=== PATIENT | male | born 1970 | race Caucasian/White ===

== ENCOUNTER 2019-08-02 12:42 | Outpatient (REF) | payer OTHER, SELFPAY ==
[2019-08-02 20:34] LABS: Hemoglobin A1C 11.2 % (3.8-5.6)
[2019-08-02 21:15] LABS: ALT 72 U/L (16-63); AST 47 U/L (15-37); Albumin 3.9 g/dL (3.4-5.0); Alkaline Phosphatase 136 U/L (46-116); Anion Gap 11.7 mmol/L (3-11); Bilirubin, Total 1.7 mg/dL (0.2-1.0); CO2 29.3 mmol/L (21.0-32.0); CREATININE 0.84 mg/dL (0.70-1.30); Calcium 9.3 mg/dL (8.5-10.1); Calculated LDL 61 mg/dL (<100); Chloride 96 mmol/L (98-107); Cholesterol 174 mg/dL (<200); Glucose 430 mg/dL (74-106); HDL Cholesterol 39 mg/dL (40-60); Potassium 4.4 mmol/L (3.5-5.1); Sodium 137 mmol/L (136-145); Total Protein 7.4 g/dL (6.4-8.2); Triglyceride 374 mg/dL (<150)
[2019-08-02 21:47] LABS: BUN 15 mg/dL (7-18)
== END 2019-08-02 13:02 ==
LOC: NCHCN 12:42
PROVIDERS: PCP Internal Medicine; Visit Provider Internal Medicine
DX: M25.511 Pain in right shoulder (principal); I10 Essential (primary) hypertension; R35.8 Other polyuria; E66.9 Obesity, unspecified
CPT/HCPCS: 80053; 80061; 83036

== ENCOUNTER 2019-10-22 11:20 | Outpatient (REF) | payer OTHER, SELFPAY ==
[2019-10-22 21:54] LABS: Hemoglobin A1C 7.2 % (3.8-5.6)
[2019-10-22 22:03] LABS: ALT 49 U/L (16-63); AST 42 U/L (15-37); Albumin 3.9 g/dL (3.4-5.0); Alkaline Phosphatase 110 U/L (46-116); BUN 16 mg/dL (7-18); CREATININE 0.92 mg/dL (0.70-1.30); Calcium 9.2 mg/dL (8.5-10.1); Chloride 98 mmol/L (98-107); Glucose 220 mg/dL (74-106); Potassium 4.3 mmol/L (3.5-5.1); Sodium 135 mmol/L (136-145); TSH 0.95 uIU/mL (0.36-3.74); Total Protein 7.8 g/dL (6.4-8.2)
== END 2019-10-22 11:40 ==
LOC: NCHCN 11:20
PROVIDERS: PCP Internal Medicine; Visit Provider Nurse Practitioner Family
DX: E11.9 Type 2 diabetes mellitus without complications (principal); I10 Essential (primary) hypertension
CPT/HCPCS: 80053; 83036; 84443

== ENCOUNTER 2021-02-17 18:53 | Outpatient (REF) | payer OTHER, SELFPAY ==
[2021-02-17 22:24] LABS: COMMENT (LAB VIEW ONLY) 60.32 mg/dL; Microalb ug/mg Crea 54.9 ug/mg Cr
== END 2021-02-17 18:54 | disposition home or self-care (01) ==
LOC: NCHCN 18:53
PROVIDERS: PCP Internal Medicine; Visit Provider Nurse Practitioner Family
DX: E11.9 Type 2 diabetes mellitus without complications (principal)
CPT/HCPCS: 82043; 82570

== ENCOUNTER 2021-10-20 18:57 | Outpatient (REF) | payer OTHER, SELFPAY ==
[2021-10-20 21:38] LABS: Anion Gap 8.2 mmol/L (3-11); BUN 24 mg/dL (7-18); CO2 26.8 mmol/L (21.0-32.0); CREATININE 0.7 mg/dL (0.70-1.30); Calcium 9.4 mg/dL (8.5-10.1); Chloride 102 mmol/L (98-107); Potassium 3.8 mmol/L (3.5-5.1); Sodium 137 mmol/L (136-145)
[2021-10-20 21:44] LABS: Glucose 141 mg/dL (74-106)
== END 2021-10-20 18:58 | disposition home or self-care (01) ==
LOC: NCHCN 18:57
PROVIDERS: PCP Internal Medicine; Visit Provider Nurse Practitioner Family
DX: I10 Essential (primary) hypertension (principal); E66.9 Obesity, unspecified
CPT/HCPCS: 80048

== ENCOUNTER 2022-01-05 18:51 | Outpatient (REF) | payer OTHER, SELFPAY ==
[2022-01-05 23:17] LABS: COMMENT (LAB VIEW ONLY) 108.81 mg/dL; Microalb ug/mg Crea 80.4 ug/mg Cr
== END 2022-01-05 18:52 | disposition home or self-care (01) ==
LOC: NCHCN 18:51
PROVIDERS: PCP Internal Medicine; Visit Provider Nurse Practitioner Family
DX: E11.9 Type 2 diabetes mellitus without complications (principal)
CPT/HCPCS: 82043; 82570

== ENCOUNTER 2022-10-19 21:07 | Outpatient (REF) | payer OTHER, SELFPAY ==
--- OUTSIDE RECORDS SUMMARY | 2022-10-19 21:09 | XMS_ITS | CCD ---
Author Name Unknown Address [address] [place] [address] [phone] Organization Unknown Address [address] [place] [address] [phone] Care Team Providers Care Director Of Investigations Name Role Phone MATIAS WALTON Attending Physician [phone] MATIAS WALTON Rounding (Secondary) Physic ivory [phone] Vital Signs Unknown or Not Available. Allergies Allergy Code Allergy Type Reaction Status TRULICITY [id number] Drug allergy PANCREAS SWELLING Activ e Procedures Unknown or Not Available. History of Immunizations Unknown or Not Available. Problems Unknown or Not Available. Results Unknown or Not Available. Active Medications Unknown or Not Available. Medications Administered During Visit Unknown or Not Available. Encounters Encounter Diagnosis Diagnosis Code Start Date Carpal tunnel syndrome, left upper limb G5602 10/06/2021 Social History Smoking Status Code Start Date End Date Never smoker [id number] Patient Decision Aids Unknown or Not Available. Discharge Instructions You were admitted to [facility] on 10/06/2021 15:12 with a principal diagnosis of Carpal tunnel syndrome, left upper limb You were discharged from [facility] on 10/06/2021 00:00 Should you have any questions prior to discharge, please contact a member of your healthcare team. If you have left the hospital and have any questions, please contact your primary care physician. Chief Complaint and Reason For Visit Unknown or Not Available. Function Status Unknown or Not Available. Plan of Care Unknown or Not Available. Referral/Transition of Care Unknown or Not Available.
--- OUTSIDE RECORDS SUMMARY | 2022-10-19 21:10 | XMS_ITS | CCD ---
Author Name Unknown Address [address] [place] [address] [phone] Organization Unknown Address [address] [place] [address] [phone] Care Team Providers Care Home Health Attendant Name Role Phone MATIAS WALTON Attending Physician [phone] Vital Signs Unknown or Not Available. Allergies Allergy Code Allergy Type Reaction Status TRULICITY [id number] Drug allergy PANCREAS SWELLING Activ e Procedures Procedure Code Procedure Type Date Neuroplasty &/Or Transpositi on; Median Nerve At Carpal Tunnel 11262 CPT 10/26/2021 History of Immunizations Unknown or Not Available. Problems Unknown or Not Available. Results GLUCOSE FINGER/HEEL CAPILLAR Y - Collect Date/Time: 10/26/2021 06:39 Test Name Code Test Result Test Units Test Ref Rang e GLUCOSE CAP 203 mg/dL L=70 H=116 Active Medications Medications Administered During Visit Medication Dose Units Frequency Route Date/Time of Last Dose CEPHALEXIN CAPSULE: 500MG 1000 MG X1 PO 10/26/2021 06:46 ACETAMINOPHEN TABLET: 325MG 975 MG X1 PO 10/26/2021 06:45 CELECOXIB CAPSULE: 100MG 200 MG X1 PO 10/26/2021 06:47 Encounters Encounter Diagnosis Diagnosis Code Start Date Carpal tunnel syndrome, left upper limb G5602 10/26/2021 Social History Smoking Status Code Start Date End Date Never smoker [id number] Patient Decision Aids Unknown or Not Available. Discharge Instructions You were admitted to [facility] on 10/26/2021 06:18 with a principal diagnosis of Carpal tunnel syndrome, left upper limb You had the following procedures done:Neuroplasty &/Or Transposition; Median Nerve At Carpal Tunnel You had the following tests done:GLUCOSE FINGER/HEEL CAPILLARY You were discharged from [facility] on 10/26/2021 08:12 Should you have any questions prior to [...]
--- OUTSIDE RECORDS SUMMARY | 2022-10-19 21:10 | XMS_ITS | CCD ---
Author Name Unknown Address [address] [place] [address] [phone] Organization Unknown Address [address] [place] [address] [phone] Care Team Providers Care Party Host Name Role Phone YAJAIRA ROGERS Attending Physician [phone] YAJAIRA ROGERS Rounding (Secondary) Physician [phone] Vital Signs Unknown or Not Available. Allergies Allergy Code Allergy Type Reaction Status TRULICITY 2596623 Drug allergy PANCREAS SWELLING Activ e Procedures Unknown or Not Available. History of Immunizations Unknown or Not Available. Problems Unknown or Not Available. Results Unknown or Not Available. Active Medications Unknown or Not Available. Medications Administered During Visit Unknown or Not Available. Encounters Encounter Diagnosis Diagnosis Code Start Date Carpal tunnel syndrome, left upper limb G5602 09/28/2021 Social History Smoking Status Code Start Date End Date Never smoker [id number] Patient Decision Aids Unknown or Not Available. Discharge Instructions You were admitted to on 09/28/2021 10:16 with a principal diagnosis of Carpal tunnel syndrome, left upper limb You were discharged from on 09/28/2021 00:00 Should you have any questions prior [...]
--- OUTSIDE RECORDS SUMMARY | 2022-10-19 21:10 | XMS_ITS | CCD ---
Author Name Unknown Address [address] [place] [address] [phone] Organization Unknown Address [address] [place] [address] [phone] Care Team Providers Care Flatwork Supervisor Name Role Phone ABBEY EDWARDS Attending Physician [phone] ABBEY EDWARDS Rounding (Secondary) Physician [phone] Vital Signs Unknown or Not Available. Allergies Allergy Code Allergy Type Reaction Status TRULICITY 4697234 Drug allergy PANCREAS SWELLING Activ e Procedures Unknown or Not Available. History of Immunizations Unknown or Not Available. Problems Unknown or Not Available. Results Unknown or Not Available. Active Medications Unknown or Not Available. Medications Administered During Visit Unknown or Not Available. Encounters Encounter Diagnosis Diagnosis Code Start Date Procedure on nervous system [id number] 10/24 Social History Smoking Status Code Start Date End Date Never smoker [id number] Patient Decision Aids Unknown or Not Available. Discharge Instructions You were admitted to [facility] on 11/04/2021 08:28 with a principal diagnosis of Encounter for surgical aftercare following surgery on the nervous system You were discharged from [facility] on 11/04/2021 00:00 Should you have any questions prior [...]
--- OUTSIDE RECORDS SUMMARY | 2022-10-19 21:10 | XMS_ITS | CCD ---
Author Name Unknown Address [address] [place] [address] [phone] Organization Unknown Address [address] [place] [address] [phone] Care Team Providers Care Credit Specialist Name Role Phone MATIAS WALTON Attending Physician [phone] Vital Signs Unknown or Not Available. Allergies Allergy Code Allergy Type Reaction Status TRULICITY [id number] Drug allergy PANCREAS SWELLING Activ e Procedures [...] Code Start Date End Date Never smoker [id number] Patient Decision Aids Unknown or Not Available. Discharge Instructions You were admitted to [facility] on 10/26/2021 05:24 with a principal diagnosis of Carpal tunnel syndrome, left upper limb You were discharged from [facility] on 10/26/2021 05:24 Should you have any questions prior to [...]
[2022-10-19 22:23] LABS: COMMENT (LAB VIEW ONLY) 92.26 mg/dL
[2022-10-19 22:47] LABS: Microalb ug/mg Crea 189.5 ug/mg Cr
== END 2022-10-19 21:08 | disposition home or self-care (01) ==
LOC: NCHCN 21:07
PROVIDERS: PCP Internal Medicine; Visit Provider Nurse Practitioner Family
DX: E11.8 Type 2 diabetes mellitus with unspecified complications (principal)
CPT/HCPCS: 82043; 82570

== ENCOUNTER 2023-01-18 18:37 | Outpatient (REF) | payer OTHER, SELFPAY ==
[2023-01-18 21:31] LABS: ALT 37 U/L (16-63); AST 27 U/L (15-37); Albumin 3.7 g/dL (3.4-5.0); Alkaline Phosphatase 129 U/L (46-116); Anion Gap 4.9 mmol/L (3-11); BUN 21 mg/dL (7-18); Bilirubin, Total 1.1 mg/dL (0.2-1.0); CO2 31.1 mmol/L (21.0-32.0); Calcium 9.2 mg/dL (8.5-10.1); Calculated LDL 55 mg/dL (<100); Chloride 104 mmol/L (98-107); Cholesterol 125 mg/dL (<200); Glucose 116 mg/dL (74-106); HDL Cholesterol 41 mg/dL (40-60); Sodium 140 mmol/L (136-145); Total Protein 7.7 g/dL (6.4-8.2); Triglyceride 145 mg/dL (<150)
[2023-01-20 12:06] LABS: Hepatitis C Ab w Rflx HCV PCR Negative (Negative)
== END 2023-01-18 18:38 | disposition home or self-care (01) ==
LOC: NCHCN 18:37
PROVIDERS: PCP Internal Medicine; Visit Provider Nurse Practitioner Family
DX: I10 Essential (primary) hypertension (principal); E11.8 Type 2 diabetes mellitus with unspecified complications
CPT/HCPCS: 80053; 80061; 86803

== ENCOUNTER 2024-12-25 22:24 | Outpatient (REF) | payer OTHER, SELFPAY ==
[2024-12-25 22:24] LABS: COMMENT (LAB VIEW ONLY) 117.32 mg/dL; Microalb ug/mg Crea 59.7 ug/mg Cr
== END 2024-12-25 22:25 | disposition home or self-care (01) ==
LOC: NCHCN 22:24
PROVIDERS: PCP Internal Medicine; Visit Provider Nurse Practitioner Family
DX: E11.9 Type 2 diabetes mellitus without complications (principal)
CPT/HCPCS: 82043; 82570